=== PATIENT | female | born 1955 | race Caucasian/White ===

== ENCOUNTER 2024-01-19 06:00 | Day surgery (SDC) | payer BC, SELFPAY ==
[2024-01-19] VITALS (20 sets, daily range): BP systolic 97–149; BP diastolic 58–99; PULSE 50–92; RESP 16; TEMP 36.1–36.8; O2SAT 95–99; BMI 25.9
[2024-01-19] MEDS: ACETAMINOPHEN 500 MG TABLET 1000 MG PO (06:48)
[2024-01-19] MEDS: LACTATED RINGERS 1000 ML 1,000 ML 100 ML IV ×2 (06:48→08:13)
[2024-01-19] MEDS: OXYCODONE (CR) 10 MG TAB.ER.12H PO (06:48)
[2024-01-19] MEDS: SODIUM CHLORIDE 0.9 % (FLUSH) 10 ML SYRINGE IVF (06:48)
[2024-01-19] MEDS: MIDAZOLAM HCL 1 MG/ML inj IVP (07:14)
[2024-01-19] MEDS: fentaNYL 100 MCG/2 ML inj IVP (07:14)
--- NOTE | 2024-01-19 07:15 | CRLHL7_ITS ---
For Patients: As a result of the Cures Act, medical imaging exams and procedure reports are released immediately into your electronic medical record. You may view this report before your referring provider. If you have questions, please contact your health care provider. Indication: Hip replacement surgery Technique: AP hip fluoroscopic image. Fluoroscopy time 34.2 seconds. Findings/Impression: Hardware from a left total hip arthroplasty is in satisfactory position. Dictated by Bhavin Zuniga MD @ 01/19/2024 10:13:06 AM (Electronically Signed)
--- NOTE | 2024-01-19 07:17 | CRLHL7_ITS ---
For Patients: As a result of the Century Cures Act, medical imaging exams and procedure reports are released immediately into your electronic medical record. You may view this report before your referring provider. If you have questions, please contact your health care provider. Indication: Postop Technique: AP pelvis and lateral view left hip Findings/Impression: Hardware from a left total hip arthroplasty is in satisfactory position. Bone alignment is normal. No sign of acute fracture. Postop changes are within normal limits. Dictated by Bhavin Zuniga MD @ 01/19/2024 11:00:09 AM (Electronically Signed)
--- NOTE | 2024-01-19 07:17 | W.PM.H&PU ---
History & Physical Update History & Physical Update H&P Reviewed and patient assessed: No changes noted
--- NOTE | 2024-01-19 07:25 | SUR.PREOP ---
TIME?OUT:?0714 PT/RN/MDA?VERIFICATION?OF?SURGICAL?SITE,?PROCEDURE,?AND?CONSENT OBTAINED?PRIOR?TO?INVASIVE?PROCEDURE.
[2024-01-19] MEDS: CEFAZOLIN 2 GM in 0.9 % SODIUM CHLORIDE Mini-bag 100 ML IVPB (07:40)
[2024-01-19] MEDS: TRANEXAMIC ACID 100 MG/ML INJ 1000 MG IV (07:41)
--- NOTE | 2024-01-19 09:03 | PM.ORPRC ---
Procedure Note Date of procedure: 01/19/24 Procedure: PREOPERATIVE DIAGNOSIS: 1. Left hip osteoarthritis, severe, primary POSTOPERATIVE DIAGNOSIS: 1. Left hip osteoarthritis, severe, primary PROCEDURE: 1. Left total hip arthroplasty-anterior approach 2. 05778 - intraoperative fluoroscopy up to 1 hour. SURGEON: José Miguel Hernandes MD. BED SETTER: Kranthi Norris PA-C; CHEO Duarte - Of note, a skilled nurseryman assistant was critical for this case to aid in patient positioning, tissue retraction, limb manipulation/positioning, dislocation/relocation, patient safety, and closure. ANESTHESIA: Spinal anesthetic EBL: 200 mL IMPLANTS: DePuy J&J uncemented total hip [place] cup size 50, hole eliminator, +4 neutral liner Actis stem, standard offset, size 4 +1 mm ceramic 32mm head. COMPLICATIONS: None evident INDICATIONS: The patient is a pleasant 68-year-old female who has experienced severe left hip pain and difficulty bearing weight. Workup included x-rays which revealed severe osteoarthrosis in the hip. Given the deformity, the dysfunction, and the pain, as well as the failure of nonoperative management, recommendation was made for surgery. FINDINGS: Full-thickness chondral loss diffusely throughout the femoral head. Osteophytes around the femoral head/neck junction. Small effusion upon entering the joint. DESCRIPTION OF PROCEDURE: Following a thorough discussion of risks, benefits, and alternatives consent was obtained and the left hip was marked. The patient was brought to the operating room and placed supine on the operating table. Induction of anesthesia was undertaken. 1 g IV Ancef and 1 g tranexamic acid was administered within 1 hr of incision preoperatively. Proper time-out was performed identifying proper patient, site, procedure. The operative extremity was prepped and draped in the appropriate sterile fashion using ChloraPrep after the patient was positioned on the [place] table with head in neutral alignment and all bony prominences well padded. C-arm fluoroscopic imaging was utilized to confirm proper pelvis rotation and position, and to get true AP films of both the contralateral left, and the affected left hip. This is for comparison. A longitudinal incision was made starting approximately 1 cm distal to the ASIS, and 3-4 cm lateral. The incision was extended distally aiming toward the lateral border the patella. Sharp incision through skin and bovie cautery through the subcutaneous tissue allowed identification of the TFL fascia. This was sharply divided, and the fascia bluntly released from the muscle fibers as we dissected medial. Upon coming to the medial border, we were able to retract the TFL laterally, and penetrated the deeper fascia and identify the crossing circumflex vessels. These were ligated/cauterized. The rectus was elevated from the capsule, and retractors placed laterally and medially along the femoral neck to help with visualization of the capsule. We then performed an inverted T capsulotomy. The capsule was tagged for later repair. Retractors were placed inside the capsule. The femoral neck was visualized after releasing medially down to the lesser trochanter, along the saddle laterally, and up onto the acetabulum. The femoral neck cut was made in line with our preoperative templating. The head was removed in a single piece, and sized. We turned our attention to acetabular preparation. Initially, the labrum was resected from around the perimeter, the pulvinar was excised, allowing us to visualize the false wall. We started the reaming with a 43 mm reamer. This was medialized down to the true wall. We then enlarged our reamers sequentially up to one size less than the selected cup size. We trialed at the same size and found it to have an excellent fit. The selected cup was then opened, inserted, and impacted in line with the goal of 40-45? of abduction, and 20-25? of anteversion. This was confirmed on C-arm fluoroscopic imaging to be in the appropriate/goal position. Once the cup was placed we placed a hole eliminator and a liner consistent with preop planning. Attention was turned to the femoral preparation. The limb was extended, externally rotated, and adducted. The posteromedial capsule was released, as retractors were placed allowing excellent access to the proximal femur. Initially a box closing machine operator was followed by canal finder followed by various broaches. We broached sequentially up to size noted above, found it to have excellent rotational control, and trialing various heads and necks, revealed that appropriate neck offset, and the above noted head size provided the greatest stability, and muslim of length, and offset. C-arm fluoroscopic imaging confirmed position of the stem, as well as leg lengths, which were compared with the pre procedure all fluoroscopic images. Trial implants were removed, the real femoral stem inserted, as was the ceramic head. After reducing, the leg was placed through range of motion and stability was confirmed anterior, posterior, and lateral. A 3 min Betadine soak was then performed, and thorough irrigation with normal saline followed. Closure of the capsule was performed with #1 PDS. Bleeding was confirmed to be controlled at this stage, and the TFL fascia was closed with #0 strata fix. Subcutaneous, and subcuticular closure was performed with 2-0 Vicryl and 4-0 Monocryl, respectively. Dressings were applied, and the patient was awoken from anesthesia and transferred the PACU in stable condition. A skilled nurseryman assistant was critical for this case to aid in patient positioning, tissue retraction, proximal femur exposure, limb manipulation/positioning, dislocation/relocation, patient safety, and closure. PLAN: 1. Weight bear as tolerated operative extremity. 2. 23 hr perioperative antibiotics. 3. Ice. 4. PT/OT consults for ambulation assistance/mobility education. 5. Social work consult for discharge planning. 6. DVT prophylaxis with at SCDs and Xarelto x5 days followed by aspirin for a total of 1 month..
--- NOTE | 2024-01-19 10:04 | W.ANESCHARGE ---
Anesthesia Charges Start Date/Time Anesthesia Start Date: 01/19/24 Anesthesia Start Time: 07:17 Stop Date/Time Anesthesia Stop Date: 01/19/24 Anesthesia Stop Time: 09:32
--- NOTE | 2024-01-19 11:57 | W.ANESCHARGE ---
Anesthesia Charges Start Date/Time Anesthesia Start Date: 01/19/24 Anesthesia Start Time: 07:17 Stop Date/Time Anesthesia Stop Date: 01/19/24 Anesthesia Stop Time: 09:32
--- NOTE | 2024-01-19 11:57 | W.PM.NB ---
Nerve Block Nerve Block Time Seen by Provider: 07:14 Date Seen: 01/19/24 Type of block requested by surgeon for post-operative analgesia: IBRAHIMA/LFCN Side: left Time out performed: Yes Verification of patient name: Yes Verification of date of : Yes Site marking: site marked Name of person performing procedure: Jonathan Continuous monitoring Was continuous monitoring of O2 sat, B/P, commercial drone pilot, recorded every 15 minutes?: Yes Procedure Checklist: sterile prep, needles and gloves Ultrasound guided. Images saved: Yes Medications given in 5ml increments after negative aspiration: Ropivicaine %: 0.5 mL: 30 Needle gauge: 20 Decadron (mg): 10 Precedex (mcg): 25 Patient tolerated procedure well: Yes Additional comments: Needle noted below psoas tendon needle noted adjacent to LFCN Block Charges Block Charge (with Pro Fee): Other Periph Nerve Block Use of Ultrasound Machine for Block: Yes- US Guidance/pain block
== END 2024-01-19 15:01 | disposition home or self-care (01) ==
LOC: OR 06:01
PROVIDERS: PCP Family Medicine; Visit Provider Orthopaedic Surgery Sports Medicine
PROC: (CPT 27130; principal; 2024-01-19 07:15)
DX: M16.12 Unilateral primary osteoarthritis, left hip (principal); G89.18 Other acute postprocedural pain; I10 Essential (primary) hypertension
CPT/HCPCS: 27130; 01214; 64450; 73501; 76000; 76942; 86850; 86900; 86901; 97110; 97116; 97161; 97165; A9270; C1776; J0690; J1100; J2250; J2371; J2405; J2704; J2795; J3010; J3490; J7120

== ENCOUNTER 2024-02-24 08:15 | Outpatient (RCR) | payer BC, SELFPAY ==
--- NOTE | 2024-01-13 08:49 | PT.OPEX ---
PT [facility] PT [facility] Eval Start: 01/13/24 07:41 Freq: Status: Active Protocol: Document 01/13/24 08:39 KLV (Rec: 01/13/24 08:45 KLV [id number]) E-signed By Carolyne Moss, PT Physical Therapy Outpatient Evaluation Insurance Information Recert Due Date 04/08/24 Insurance Name [employer] Medical Diagnosis Left hip OA Pre and post operative left ELSIE DOS: 01/19/24 [facility] Treating Diagnosis Left hip pain, limited hip ROM , gross LE weakness, antalgic gait Referring MD Hernandes Subjective Preferred Name Radha Jo (Radha) reports to PT with primary complaint of chronic L hip pain with underlying/occasional left knee and right hip pain. Imaging indicates end stage OA and surgical candidate. Scheduled for L ELSIE 01/19/24 [facility]. [facility] (B railings). Bed/bath on top floor with railing on L side ascending. Tub shower combo with grab bar. May look into getting shower chair. Has a 2WW and SEC. Lives with and children who are able to assist. 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 Built in time off for about 10 weeks. Goals are to return to normal walking, stair negotiation and work with minimal deviations/ pain. PMH: L knee arthroscopic 80s, HTN Pain Comments 11/11 Date of Last Physician Visit 11/21/23 Objective Other/Pertinent Objective Antalgic gait: limited stance time L LE, trendelenburg gait L, decreased stride length L IR/ER: 02/21 (right 15/35) Negative straight leg raise for tension signs. Severe groin pain with hip ROM. Good strength throughout the hip. Assessment Assessment/Impression Radha is a 68 year old female presenting to PT for preparation of upcoming L ELSIE DOS 01/19/24 d/t end stage OA. Session focused on education of anterior hip precautions, post-operative fall prevention precautions, transfers, gait with AD, stair negotiation, post-operative exercises. She is able to verbalize precautions and demonstrated independence with exercises, gait and stairs. She is appropriate to proceed with surgery at this time. Primary Functional Limitations Walking, standing, heavy lifting Plan of Care Rehabilitation Potential Good Physical Therapy Goals By end of session today, patient will... Demonstrate appropriate gait pattern with FWW to utilize post surgery for optimal safety when ambulating Demonstrate ability to negotiate stairs using appropriate stair pattern post surgery for optimal safety when at home and in community Verbalize understanding of most appropriate home set up including needed equipment for optimal safety and recovery post surgery Be independent in HEP program to show ability to perform appropriate exercises post surgery Treatment Plan/Direct Interventions Gait Training,Ice/Cold/ Vasopneumatic,Joint Mobilization,Manual Therapy, Neuromuscular Re-ed,Self-Care/ Home Management,Therapeutic Activities,Therapeutic Exercises Frequency/Duration Pre-op appointment Re-evaluate post-op Patient Will Be Discharged From Therapy Completion of LTG(s), Independent w/HEP, Independently Progressing Evaluation Billing Untimed Code Treatment Minutes 10 Complexity Low Certification Information Initial Certification Date 01/13/24 Ending Certification Date 04/08/24 Provider Signature Required Yes Provider Signature Shows Agreement With POC & Medical Necessity Physician NPI Number Write NPI# Here Physician Comment/Change : Physician Signature & Date Requested Please Sign/Date Here
== END 2024-02-24 09:58 | disposition home or self-care (01) ==
PROVIDERS: PCP Family Medicine; Visit Provider Orthopaedic Surgery Sports Medicine
DX: M16.12 Unilateral primary osteoarthritis, left hip (principal); Z96.642 Presence of left artificial hip joint; M25.552 Pain in left hip; R29.898 Other symptoms and signs involving the musculoskeletal system; R26.9 Unspecified abnormalities of gait and mobility; Z51.89 Encounter for other specified aftercare
CPT/HCPCS: 97110; 97161; 97535

== ENCOUNTER 2024-07-12 09:56 | Day surgery (SDC) | payer BC, SELFPAY ==
[2024-07-12] VITALS (24 sets, daily range): BP systolic 88–135; BP diastolic 54–86; PULSE 56–93; RESP 12–18; TEMP 36.1–36.9; O2SAT 95–100; BMI 28.5
[2024-07-12] MEDS: LACTATED RINGERS 1000 ML 1,000 ML 100 ML IV ×2 (10:00→13:59)
[2024-07-12] MEDS: OXYCODONE (CR) 10 MG TAB.ER.12H PO (10:05)
[2024-07-12] MEDS: ACETAMINOPHEN 500 MG TABLET 1000 MG PO ×3 (10:05→23:42)
--- NOTE | 2024-07-12 10:39 | W.PM.H&PU ---
History & Physical Update History & Physical Update H&P Reviewed and patient assessed: No changes noted
[2024-07-12] MEDS: fentaNYL 100 MCG/2 ML inj IVP (11:18)
[2024-07-12] MEDS: MIDAZOLAM HCL 1 MG/ML inj IVP (11:18)
[2024-07-12] MEDS: SODIUM CHLORIDE 0.9 % (FLUSH) 10 ML SYRINGE IVF (11:30)
--- NOTE | 2024-07-12 11:30 | SUR.PREOP ---
TIME?OUT:?1118 PT/fady harris RN/socrates resendiz MDA?VERIFICATION?OF?SURGICAL?SITE,?PROCEDURE,?AND?CONSENT OBTAINED?PRIOR?TO?INVASIVE?PROCEDURE.
[2024-07-12] MEDS: CEFAZOLIN 2 GM in 0.9 % SODIUM CHLORIDE Mini-bag 100 ML IVPB (11:58)
[2024-07-12] MEDS: TRANEXAMIC ACID 100 MG/ML INJ 1000 MG IV (12:04)
--- NOTE | 2024-07-12 13:04 | W.PM.NB ---
Nerve Block Nerve Block Time Seen by Provider: 11:23 Date Seen: 07/12/24 Type of block requested by surgeon for post-operative analgesia: IBRAHIMA/LFCN Side: right Time out performed: Yes Verification of patient name: Yes Verification of date of : Yes Site marking: site marked Name of person performing procedure: Jonathan Continuous monitoring Was continuous monitoring of O2 sat, B/P, mat tester, recorded every 15 minutes?: Yes Procedure Checklist: sterile prep, needles and gloves Ultrasound guided. Images saved: Yes Medications given in 5ml increments after negative aspiration: Ropivicaine %: 0.5 mL: 30 Needle gauge: 20 Precedex (mcg): 25 Patient tolerated procedure well: Yes Additional comments: Needle noted below psoas tendon needle noted adjacent to LFCN Block Charges Block Charge (with Pro Fee): Other Periph Nerve Block Use of Ultrasound Machine for Block: Yes- US Guidance/pain block
--- NOTE | 2024-07-12 13:39 | PM.ORPRC ---
Procedure Note Date of procedure: 07/12/24 Procedure: PREOPERATIVE DIAGNOSIS: 1. Right hip osteoarthritis, severe, primary POSTOPERATIVE DIAGNOSIS: 1. Right hip osteoarthritis, severe, primary PROCEDURE: 1. Right total hip arthroplasty-anterior approach 2. 64026 - intraoperative fluoroscopy up to 1 hour. SURGEON: José Miguel Hernandes MD. STOVE POLISHER: Rajani Jean PA-C; Kranthi Norris PA-C; - Of note, a skilled assistant winemaker was critical for this case to aid in patient positioning, tissue retraction, limb manipulation/positioning, and closure. ANESTHESIA: Spinal anesthetic EBL: 300 mL IMPLANTS: DePuy J&J uncemented total hip [place] cup size 48, single cancellous acetabular screw, hole eliminator, +4 neutral liner Actis stem, standard offset, size 4 +9 mm ceramic 32mm head COMPLICATIONS: None evident INDICATIONS: The patient is a pleasant 69-year-old female who has experienced severe right hip pain and difficulty bearing weight. Workup included x-rays which revealed severe osteoarthrosis in the hip. Given the deformity, the dysfunction, and the pain, as well as the failure of nonoperative management, recommendation was made for surgery. FINDINGS: Full-thickness chondral loss diffusely throughout the femoral head, but especially superiorly. Also acetabular osteophytosis and osteophytes around the femoral head/neck junction. DESCRIPTION OF PROCEDURE: Following a thorough discussion of risks, benefits, and alternatives consent was obtained and the right hip was marked. The patient was brought to the operating room and placed supine on the operating table. Induction of anesthesia was undertaken. 1 g IV Ancef and 1 g tranexamic acid was administered within 1 hr of incision preoperatively. Proper time-out was performed identifying proper patient, site, procedure. The operative extremity was prepped and draped in the appropriate sterile fashion using ChloraPrep after the patient was positioned on the [place] table with head in neutral alignment and all bony prominences well padded. C-arm fluoroscopic imaging was utilized to confirm proper pelvis rotation and position, and to get true AP films of both the contralateral left, and the affected right hip. This is for comparison. A longitudinal incision was made starting approximately 1 cm distal to the ASIS, and 3-4 cm lateral. The incision was extended distally aiming toward the lateral border the patella. Sharp incision through skin and bovie cautery through the subcutaneous tissue allowed identification of the TFL fascia. This was sharply divided, and the fascia bluntly released from the muscle fibers as we dissected medial. Upon coming to the medial border, we were able to retract the TFL laterally, and penetrated the deeper fascia and identify the crossing circumflex vessels. These were ligated/cauterized. The rectus was elevated from the capsule, and retractors placed laterally and medially along the femoral neck to help with visualization of the capsule. We then performed an inverted T capsulotomy. The capsule was tagged for later repair. Retractors were placed inside the capsule. The femoral neck was visualized after releasing medially down to the lesser trochanter, along the saddle laterally, and up onto the acetabulum. The femoral neck cut was made in line with our preoperative templating. The head was removed in a single piece, and sized. We turned our attention to acetabular preparation. Initially, the labrum was resected from around the perimeter, the pulvinar was excised, allowing us to visualize the false wall. We started the reaming with a 43 mm reamer. This was medialized down to the true wall. We then enlarged our reamers sequentially up to one size less than the selected cup size. We trialed at the same size and found it to have an excellent fit. The selected cup was then opened, inserted, and impacted in line with the goal of 40? of abduction, and 20-25? of anteversion. This was confirmed on C-arm fluoroscopic imaging to be in the appropriate/goal position. Once the cup was placed we placed a hole eliminator and a liner consistent with preop planning. Attention was turned to the femoral preparation. The limb was extended, externally rotated, and adducted. The posteromedial capsule was released, as retractors were placed allowing excellent access to the proximal femur. Initially a gill box fixer was followed by canal finder followed by various broaches. We broached sequentially up to the size noted above, found it to have excellent rotational control, and trialing various heads and necks, revealed that appropriate neck offset, and the above noted head size provided the greatest stability, and yarsanism of length, and offset. C-arm fluoroscopic imaging confirmed position of the stem, as well as leg lengths, which were compared with the pre procedure all fluoroscopic images. Trial implants were removed, the real femoral stem inserted, as was the appropriate head. After reducing, the leg was placed through range of motion and stability was confirmed anterior, posterior, and lateral. A 3 min Betadine soak was then performed, and thorough irrigation with normal saline followed. Closure of the capsule was performed with #1 PDS. Bleeding was confirmed to be controlled at this stage, and the TFL fascia was closed with #0 strata fix. Subcutaneous, and subcuticular closure was performed with 2-0 Vicryl and 4-0 Monocryl, respectively. Dressings were applied, and the patient was awoken from anesthesia and transferred the PACU in stable condition. A skilled assistant winemaker was critical for this case to aid in patient positioning, tissue retraction, acetabular and proximal femoral exposure, limb manipulation/positioning, dislocation/relocation, patient safety, and closure. PLAN: 1. Weight bear as tolerated operative extremity. 2. 23 hr perioperative antibiotics. 3. Ice. 4. PT/OT consults for ambulation assistance/mobility education. 5. Social work consult for discharge planning. 6. DVT prophylaxis with at SCDs and Xarelto x5 days followed by aspirin for a total of 1 month..
--- NOTE | 2024-07-12 14:18 | W.ANESCHARGE ---
Anesthesia Charges Start Date/Time Anesthesia Start Date: 07/12/24 Anesthesia Start Time: 11:43 Stop Date/Time Anesthesia Stop Date: 07/12/24 Anesthesia Stop Time: 14:20 Coding CPT Codes CPT Codes: ANESTH HIP ARTHROPLASTY - 69891 ([id number]) QK - SAW SHARPENER 2-4 CNCRNT ANES PROC, QX - GUILLOTINE OPERATOR SVC W/ MD MED DIRECTION, P2 - PATIENT W/MILD SYST DISEASE
--- NOTE | 2024-07-12 14:22 | W.ANESCHARGE ---
Anesthesia Charges Start Date/Time Anesthesia Start Date: 07/12/24 Anesthesia Start Time: 11:43 Stop Date/Time Anesthesia Stop Date: 07/12/24 Anesthesia Stop Time: 14:20 Coding CPT Codes CPT Codes: ANESTH HIP ARTHROPLASTY - 67297 ([id number]) QK - SMOKE AND FLAME SPECIALIST 2-4 CNCRNT ANES PROC, QX - BIODIESEL DIVISION MANAGER SVC W/ MD MED DIRECTION, P2 - PATIENT W/MILD SYST DISEASE
[2024-07-12] MEDS: PHENYLEPHRINE 100 MCG/ML SYRINGE IVP (14:28)
--- NOTE | 2024-07-12 17:21 | PM.IMCN1 ---
Date of Consult Consult date: 07/12/24 Requesting Physician: Orthopedics Primary Care Provider: Zamzam Sanderson MD Consult Narrative Narrative: HOSPITALIST CONSULT Procedure: Right total hip arthroplasty-anterior approach SURGEON: José Miguel Hernandes MD. ANESTHESIA: Spinal anesthetic EBL: 300 mL COMPLICATIONS: None evident The hospital medicine team was asked by the orthopedic surgery team to manage the patient's hypertension There have been no perioperative complications. I have updated and reviewed the active medical problems, past medical history, past surgical history, social history, allergies and medications in our electronic EMR. This includes a cross reference to care everywhere in [facility] and with [facility] databases. PHYSICAL EXAM: CODE STATUS: FULL CODE CONSTITUTIONAL: Conversive, good historian. A/O. Knows setting and context. VITAL SIGNS: see record. HEENT: Normocephalic, atraumatic. PERRL, EOMI, conjunctivae pink, no scleral icterus. Ears and nose externally normal. Pharynx normal. NECK: No JVD. No carotid bruit, no thyromegaly, no adenopathy. CHEST: Clear to auscultation bilaterally HEART: S1 and S2 normal. ABDOMEN: Flat, soft, nontender. Normal bowel sounds. Moderately obese. EXTREMITIES: No edema. MUSCULOSKELETAL: right hip SDI NEURO: Cranial nerves intact. Mentation normal. Normal affect. SKIN: No rashes, petechiae, concerning changes PSYCHIATRIC: Mentation normal. INVESTIGATIONS: EMR Reviewed; Pre-OP Reviewed DISPOSITION: DVT: Agree with Ortho team decision GI: PO intake PFSH [facility] Medical History (Updated 07/12/24 @ 17:42 by Frida Serra MD) Osteoarthritis of right hip ?M16.11 - Unilateral primary osteoarthritis, right hip (ICD-10) KEVIN (obstructive sleep apnea) ?G47.33 - Obstructive sleep apnea (adult) (pediatric) (ICD-10) Hypertension ?I10 - Essential (primary) hypertension (ICD-10) Surgical History (Updated 07/12/24 @ 17:47 by Frida Serra MD) S/P total right hip arthroplasty (07/12/24) ?Z96.641 - Presence of right artificial hip joint (ICD-10) H/O tubal ligation ?Z98.51 - Tubal ligation status (ICD-10) History of total left hip arthroplasty (01/19/24) ?Z96.642 - Presence of left artificial hip joint (ICD-10) Hx of arthroscopic knee surgery ?Z98.890 - Other specified postprocedural states (ICD-10) History of section ?Z98.891 - History of uterine scar from previous surgery (ICD-10) History of carpal tunnel surgery of left wrist (05/19/13) ?Z98.890 - Other specified postprocedural states (ICD-10) Family History Mother Breast cancer Father Heart disease Social History Smoking Status: Never smoker How often do you have a drink containing alcohol: never AUDIT-C Alcohol total score: 0 Non-prescribed substance use: denies use Caffeine: Yes Are you using contraception or practicing any form of control: No Meds Home Medications and Allergies Home Medications ?Medication ?Instructions ?Recorded ?Confirmed ?Type amlodipine 2.5 mg tablet 5 mg PO HS 07/06/24 07/12/24 History rosuvastatin 10 mg tablet 10 mg PO HS 07/06/24 07/12/24 History lisinopril 40 mg tablet 40 mg PO DAILY 07/12/24 07/12/24 History Allergies Allergy/AdvReac Type Severity Reaction Status Date / Time No Known Drug Allergies Allergy Verified 07/12/24 10:20 Exam Const: Vital Signs, click to edit/add: Vital Signs - 24 hr 07/12/24 10:21 07/12/24 11:18 07/12/24 11:20 Temperature 97.8 F Pulse Rate 93 77 76 Respiratory Rate 16 16 16 Blood Pressure 134/86 135/83 123/78 Pulse Oximetry 96 100 100 Oxygen Delivery Me thod Room Air Nasal Cannula Nasal Cannula Oxygen Flow Rate 3 3 07/12/24 14:15 07/12/24 14:20 07/12/24 14:25 Temperature 97.4 F L Pulse Rate 64 63 57 L Respiratory Rate 12 13 12 Blood Pressure 92/54 L 91/57 L 88/59 L Pulse Oximetry 95 95 95 Oxygen Delivery Me thod Room Air Room Air Room Air Oxygen Flow Rate 07/12/24 14:30 07/12/24 14:35 07/12/24 14:40 Temperature 98.4 F Pulse Rate 56 L 60 62 Respiratory Rate 12 14 14 Blood Pressure 119/78 91/58 L 93/59 L Pulse Oximetry 95 95 95 Oxygen Delivery Me thod Room Air Room Air Room Air Oxygen Flow Rate 07/12/24 14:45 07/12/24 14:50 07/12/24 15:00 Temperature 98.0 F 97 F L Pulse Rate 64 63 65 Respiratory Rate 16 16 16 Blood Pressure 92/59 L 99/62 110/71 Pulse Oximetry 98 98 98 Oxygen Delivery Me thod Room Air Room Air Room Air Oxygen Flow Rate 3 07/12/24 15:15 07/12/24 15:30 07/12/24 15:45 Temperature 97.2 F L 97.5 F L 97.5 F L Pulse Rate 65 61 68 Respiratory Rate 16 16 18 Blood Pressure 107/71 116/78 113/74 Pulse Oximetry 98 99 100 Oxygen Delivery Me thod Room Air Room Air Room Air Oxygen Flow Rate 07/12/24 16:00 07/12/24 16:30 Temperature 97.6 F 97.8 F Pulse Rate 67 69 Respiratory Rate 16 16 Blood Pressure 116/76 112/73 Pulse Oximetry 97 96 Oxygen Delivery Me thod Room Air Room Air Oxygen Flow Rate Assessment and Plan Assessment and plan (1) S/P total right hip arthroplasty: Problem comment: Right total hip arthroplasty-anterior approach (07/12/24, Dr. Hernandes) [facility] medicine team is happy to follow the patient through to discharge. We are expecting a routine postoperative course. I have reconciled home medications and completed our part of the discharge. -I will hold antihypertensives as indicated per our practice standard Status: Acute (2) Hyperlipidemia: Status: Acute (3) Hypertension: Status: Acute
[2024-07-12] MEDS: CEFAZOLIN 1 GM in 0.9 % SODIUM CHLORIDE Mini-bag 100 ML IVPB (18:34)
--- NOTE | 2024-07-12 18:40 | PC.NURSE ---
End of shift note: Pt arrived to unit @ 1500. Pt AxOx4, pleasant, and cooperative with cares. Denies nausea. LSCTA on RA. Pt tolerating reg diet/fluids well. Pain to the R hip managed with reposition, scheduled Tylenol, and active ice to the op site. Op site remains CDI, CMS intact. Pt up in chair for meal. A1 GB W. Pt awaiting to void. Fluids running intravenously at 75 ml/hr. Pt appears watching television in chair with call light in reach. Family visited this evening.
[2024-07-12] MEDS: SENNOSIDES 1 TAB TABLET 2 TAB PO (20:45)
[2024-07-12] MEDS: OXYCODONE 5 MG TABLET PO (20:45)
[2024-07-12] MEDS: ROSUVASTATIN CALCIUM 10 MG TABLET PO (20:45)
[2024-07-13] MEDS: CEFAZOLIN 1 GM in 0.9 % SODIUM CHLORIDE Mini-bag 100 ML IVPB (02:21)
[2024-07-13 02:25] VITALS: BP 131/79; PULSE 83; RESP 16; TEMP 36.1; O2SAT 96
[2024-07-13] MEDS: OXYCODONE 5 MG TABLET PO ×2 (02:56→08:46)
[2024-07-13] MEDS: ACETAMINOPHEN 500 MG TABLET 1000 MG PO (06:01)
[2024-07-13 06:03] VITALS: BP 138/93; PULSE 89; RESP 16; TEMP 37.1; O2SAT 97
[2024-07-13 06:44] LABS: Basophils Percent Auto 0.1 % (0.0-3.0); Hematocrit 38.5 % (33.0-51.0); Hemoglobin* 12.9 gm/dL (12.0-16.0); Immature Granulocytes Pct Auto 0.3 %; Lymphocytes Percent Auto 7.9 % (20-44); Mean Corpuscular HGB Conc 34 gm/dL (32-36); Mean Corpuscular Hemoglobin 28 pg (26-34); Mean Corpuscular Volume 83 fL (80-100); Monocytes Percent Auto 5.1 % (0.0-11.0); Neutrophils Percent Auto 86.6 % (42.0-72.0); Platelet Count* 338 K/uL (140-440); RDW Coefficient of Variation % 12.9 % (11.5-15.5); Red Blood Count 4.66 m/uL (4.00-5.20)
[2024-07-13 06:47] LABS: Sodium* 135 mmol/L (135-149)
[2024-07-13 06:50] LABS: Blood Urea Nitrogen* 16 mg/dL (7-30); Creatinine* 0.4 mg/dL (0.5-1.5); Est. Creatinine Clearance* 41.19; Estimated Glomerular Filt Rate 108 ml/min
[2024-07-13 06:58] LABS: Slide Review Reflex No
--- NOTE | 2024-07-13 07:49 | PC.NURSE ---
Pt alert and oriented. Pt pleasant and cooperative. Pt up with SBA with walker and gait belt. Pt had complaints of pain ranging from 4-6; see EMAR for intervention. Pt?s dressing dry and intact.?
[2024-07-13 08:45] VITALS: O2SAT 97
[2024-07-13] MEDS: SENNOSIDES 1 TAB TABLET 2 TAB PO (08:45)
[2024-07-13] MEDS: lisinopriL 20 MG TABLET PO (08:47)
[2024-07-13] MEDS: RIVAROXABAN 10 MG TABLET PO (08:47)
--- NOTE | 2024-07-13 09:28 | PM.ORPN ---
Subjective Subjective Date Seen: 07/13/24 Principal diagnosis: Status postop day 1, right total hip arthroplasty - anterior approach Interval history: Patient reports doing well. No acute events over night. Pain managed with scheduled and PRN medications, ice. DVT prophylaxis: Rivaroxaban, SCDs, walking. Denies fevers, chills, aches, N/V, CP, SOB/GABRIEL, or lightheadedness. Passing flatus. Ortho Exam Narrative Exam Narrative: -Patient appears comfortable in recliner; no apparent acute distress -Alert and oriented times 3 -Operative hip mildly swollen; soft tissues supple; no obvious erythema. Ecchymosis minimal. Warmth appropriate -Surgical dressing clean, dry, intact; no obvious drainage, no erythematous streaking peripheral to the bandage -Bilateral calves soft and supple; no significant swelling, edema, tenderness, erythema, discoloration, warmth, or palpable cords -2+ DP/PT pulses, intact dermatomes and myotomes distally (5/5 strength). Mild numbness about the lateral femoral cutaneous nerve distribution. Const Vital Signs, click to edit/add: Vital Signs - 24 hr 07/12/24 10:21 07/12/24 11:18 07/12/24 11:20 Temperature 97.8 F Pulse Rate 93 77 76 Pulse Rate [Pulse Oximeter] Respiratory Rate 16 16 16 Blood Pressure 134/86 135/83 123/78 Pulse Oximetry 96 100 100 Oxygen Delivery Method Room Air Nasal Cannula Nasal Cannula Oxygen Flow Rate 3 3 07/12/24 14:15 07/12/24 14:20 07/12/24 14:25 Temperature 97.4 F L Pulse Rate 64 63 57 L Pulse Rate [Pulse Oximeter] Respiratory Rate 12 13 12 Blood Pressure 92/54 L 91/57 L 88/59 L Pulse Oximetry 95 95 95 Oxygen Delivery Method Room Air Room Air Room Air Oxygen Flow Rate 07/12/24 14:30 07/12/24 14:35 07/12/24 14:40 Temperature 98.4 F Pulse Rate 56 L 60 62 Pulse Rate [Pulse Oximeter] Respiratory Rate 12 14 14 Blood Pressure 119/78 91/58 L 93/59 L Pulse Oximetry 95 95 95 Oxygen Delivery Method Room Air Room Air Room Air Oxygen Flow Rate 07/12/24 14:45 07/12/24 14:50 07/12/24 15:00 Temperature 98.0 F 97 F L Pulse Rate 64 63 65 Pulse Rate [Pulse Oximeter] Respiratory Rate 16 16 16 Blood Pressure 92/59 L 99/62 110/71 Pulse Oximetry 98 98 98 Oxygen Delivery Method Room Air Room Air Room Air Oxygen Flow Rate 3 07/12/24 15:15 07/12/24 15:30 07/12/24 15:45 Temperature 97.2 F L 97.5 F L 97.5 F L Pulse Rate 65 61 68 Pulse Rate [Pulse Oximeter] Respiratory Rate 16 16 18 Blood Pressure 107/71 116/78 113/74 Pulse Oximetry 98 99 100 Oxygen Delivery Method Room Air Room Air Room Air Oxygen Flow Rate 07/12/24 16:00 07/12/24 16:30 07/12/24 17:00 Temperature 97.6 F 97.8 F 98 F Pulse Rate 67 69 64 Pulse Rate [Pulse Oximeter] Respiratory Rate 16 16 16 Blood Pressure 116/76 112/73 105/69 Pulse Oximetry 97 96 96 Oxygen Delivery Method Room Air Room Air Room Air Oxygen Flow Rate 07/12/24 18:00 07/12/24 19:00 07/12/24 20:43 Temperature 97.7 F 97.2 F L 97.5 F L Pulse Rate 69 75 85 Pulse Rate [Pulse Oximeter] Respiratory Rate 16 16 16 Blood Pressure 122/85 128/79 132/80 Pulse Oximetry 99 96 97 Oxygen Delivery Method Room Air Room Air Room Air Oxygen Flow Rate 0 0 07/12/24 21:56 07/12/24 21:58 07/12/24 21:59 Temperature 97.6 F Pulse Rate 85 Pulse Rate [Pulse Oximeter] 85 Respiratory Rate 16 16 Blood Pressure 124/78 Pulse Oximetry 96 96 Oxygen Delivery Method Room Air Room Air Oxygen Flow Rate 0 0 07/13/24 02:25 07/13/24 06:03 07/13/24 08:45 Temperature 97.0 F L 98.8 F Pulse Rate 83 89 Pulse Rate [Pulse Oximeter] Respiratory Rate 16 16 Blood Pressure 131/79 138/93 H Pulse Oximetry 96 97 97 Oxygen Delivery Method Room Air Room Air Room Air Oxygen Flow Rate 0 Assessment and Plan Assessment and plan (1) S/P total right hip arthroplasty: Problem details: Right total hip arthroplasty-anterior approach (07/12/24, Dr. Hernandes) Hospital medicine team is happy to follow the patient through to discharge. We are expecting a routine postoperative course. I have reconciled home medications and completed our part of the discharge. -I will hold antihypertensives as indicated per our practice standard Status: Acute (2) Hyperlipidemia: Status: Acute (3) Hypertension: Status: Acute Plan - Complete 23 hour perioperative antibiotics. - PT/OT consult for education and assistance. - Social work consult for discharge planning - Prescribed analgesics as needed - DVT prophylaxis: Rivaroxaban, walking, and SCDs - Anticipation is for discharge to home with family/friends today 07/13/2024 if the patient remains medically stable, pain is controlled, and they are safe with mobilization.
--- NOTE | 2024-07-13 11:53 | PC.NURSE ---
patient vital signs stable no nausea, pain controlled, ambulating well. Discharge instructions discussed and patient acknowledges understanding. patient transported via wheelchair with daughter and able o get self in daughters SUV with no assistance. patient in good spirits at discharge.
== END 2024-07-13 11:20 | disposition home or self-care (01) ==
LOC: OR 09:59 → MEDSURG 10:04
PROVIDERS: PCP Family Medicine; Visit Provider Orthopaedic Surgery Sports Medicine
PROC: (CPT 27130; principal; 2024-07-12 11:30)
DX: M16.11 Unilateral primary osteoarthritis, right hip (principal); G89.18 Other acute postprocedural pain; I10 Essential (primary) hypertension; G47.33 Obstructive sleep apnea (adult) (pediatric); E78.5 Hyperlipidemia, unspecified
CPT/HCPCS: 27130; 01214; 36415; 64450; 73501; 76942; 82565; 84132; 84295; 84520; 85025; 86850; 86900; 86901; 97110; 97116; 97162; 97165; A9270; C1713; C1776; J0690; J1100; J2250; J2371; J2704; J2795; J3010; J7120

== ENCOUNTER 2024-08-17 09:00 | Outpatient (RCR) | payer BC, SELFPAY ==
--- NOTE | 2024-07-20 09:58 | PT.OPEX ---
PT [facility] Outpatient Eval PT [facility] Outpatient Eval Start: 07/20/24 08:16 Freq: Status: Active Protocol: Document 07/20/24 08:44 HLA (Rec: 07/20/24 09:51 HLA No Response) E-signed By Meena Chatterjee, PT, DPT Physical Therapy Outpatient Evaluation Insurance Information Recert Due Date 10/17/24 Insurance Name [employer] Medical Diagnosis R ant ELSIE Treating Diagnosis weakness, stiffness, difficulty amb post R ant ELSIE 07/12/24 Referring MD Hernandes Subjective Preferred Name Radha Subjective Pain ok, some stiffness, 08/12. Up with 4ww, taking oxycodone before bed otherwise Tylenol. Had L ELSIE 01/19/24. 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 Instructed in activity level for home and gt progression. 3 stairs, 2 reps rail + cane sba Standing balance fair static, fair dynamic Sensation/Reflexes intact to light touch. Functional Test Performed & Score LEFS 16/80 Assessment Assessment/Impression Radha is 1 week s/p R ant ELSIE with hx of L ELSIE 01/26. 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 Lives with dtr in split entry home, 3 step entry with railing. Pt arrives today using a 4ww, slow stable gt. AAROM R hip flex 0-95 flex, abd 0-30, ER 0 -35, IR 0-20. Pt with strength R hip 3-/5. Reviewed her ELSIE ex, added seated HF, fwd bend, hip ER/IR rolls legs extended supine, LTR, and bridges, reviewed all x 2. Discussed progression and goals of OP PT . Pt presents with weakness, impaired ROM and impaired amb post R ant ELSIE. She will benefit from weekly sessions of PT to return to full AROM and strength R LE, community amb and hobbies/gardening ind no device. Primary Functional Limitations impaired ROM, impaired strength, impaired amb, impaired stairs Plan of Care Rehabilitation Potential Good Physical Therapy Goals Within 8-10 weeks. 1. Pt will amb level surfaces 20 min without an assistive device and no evidence of limp . 2. Pt will ascend/descend 13 stairs with railing reciprocally, safely and independently for household and community mobility. 3. Pt will demonstrate normal strength of surgical hip to prevent substitution of movement, prevent falls with mobility. 4. Pt will be independent in home ex program to promote strength and mobility and to prevent falls. Treatment Plan/Direct Interventions Dry Needling,Gait Training,Ice /Cold/Vasopneumatic,Joint Mobilization,Manual Therapy, Neuromuscular Re-ed,Self-Care/ Home Management,Therapeutic Activities,Therapeutic Exercises Frequency/Duration weekly x 6-8 weeks Patient Will Be Discharged From Therapy Completion of LTG(s),Skills Plateau,Independent w/HEP, Independently Progressing Evaluation Billing Untimed Code Treatment Minutes 15 PT Eval No Charge Yes Complexity Low Certification Information Initial Certification Date 07/20/24 Ending Certification Date 10/18/24 Provider Signature Required Yes Provider Signature Shows Agreement With POC & Medical Necessity Physician NPI Number Write NPI# Here Physician Comment/Change : Physician Signature & Date Requested Please Sign/Date Here
== END 2024-08-17 09:57 | disposition home or self-care (01) ==
PROVIDERS: PCP Family Medicine; Visit Provider Orthopaedic Surgery Sports Medicine
DX: M16.11 Unilateral primary osteoarthritis, right hip (principal); Z96.641 Presence of right artificial hip joint; Z51.89 Encounter for other specified aftercare
CPT/HCPCS: 97110; 97112; 97161